=== PATIENT | female | born 1970 | race Caucasian/White ===

== ENCOUNTER → 2019-06-14 | Outpatient (CLI) | payer MEDICARE, MEDICAID ==
[~2019-06-14] MED LIST: ABILIFY15 MG PO; ACETAMINOPHEN500 M1 PO; BAYER CHEWABLE81 MG PO; BENZTROPINE MES1 MG PO; BUSPIRONE HCL15 MG PO; BUTRANS1 EAC1 TRANSDERM; BUTRANS1 EACH INTRADERM; COLACE 100 MG100 MG PO; DEBROX; DESMOPRESSIN A0.2 M2 PO; FLEET ENEMA133 ML; LAC-HYDRIN FIV226 GM TOP; LASIX 20 MG TAB20 MG PO; LEVOTHYROXIN0.088 MG PO; LIPITOR 10 MG10 M1 PO; LOVAZA1000 MG PO; MEDROLDOSEPACK PO; MELATONIN3 MG PO; MELOXICAM15 MG PO; METFORMIN HCL500 M2 PO; MILK OF MA400 MG/5 M PO; MIRALAX119 GM PO; OLANZAPINE ODT5 MG PO; OYSTER SHELL 51 EACH PO; PHAZYME180 MG PO; PRILOSEC20 MG PO; PROMS25 WY RECTAL; REGLAN 5 MG TAB5 MG PO; TEGRETOL200 MG PO; UNICOMPLEX M TA1 TA1 PO; VITAMIN E400 UNI4 PO; ZETIA10 MG PO; ZOCOR 20 MG TAB20 M1 PO
--- NOTE | 2019-07-05 08:57 | PAINCON ---
[facility] [address] [place] [address] PAIN MANAGEMENT CONSULTATION Name: LUISITO FLORENTINO Room: [facility]#: [id number] Admission: 06/14/19 Attend Phys: Nilsa Galvez MD Discharge: Date of : 66 Report #: [id number] THIS REPORT FOR: //name// cc: Ernesto Hendrix MD, Daljeet MD THIS REPORT FOR: //name// CC: Ernesto Galvez DATE OF SERVICE: 06/14/2019 CHIEF COMPLAINT: Low back pain. HISTORY OF PRESENT ILLNESS: The patient is a 48-year-old female with back pain. She has difficulty with communication due to mental handicap. She is present with her caregivers. She is accompanied by her mother. The patient seems to be having increased pain over the last few months. There is some difficulty in understanding exactly where her pain is. She sits in a wheelchair. Her caregivers have been with her for quite a number of years. They are not exactly sure where her pain is coming from. When she is assisted in getting out of the chair, she complains verbally. She pushes one's hand away. She has been brought to the Pain [facility] for evaluation and possible treatment. ALLERGIES: PENICILLIN, HALDOL. MEDICATIONS: Clorazepate from Tranxene T-Tab, Extra Strength Tylenol 500 mg up to 4 times daily, ammonium lactate lotion b.i.d., Abilify 15 mg, 30 mg daily, aspirin 81 mg, Cogentin 1 g b.i.d., buspirone 15 mg, 30 mg b.i.d., calcium, Tegretol 200 mg t.i.d., desmopressin 3 mg, Colace 100 mg b.i.d., Zetia 10 mg, Lasix 20 mg, Synthroid 0.088 mg, magnesium 400 mg, melatonin 3 mg, 6 mg at bedtime, meloxicam 15 mg, Reglan 5 mg. PAST MEDICAL HISTORY: Hypertension, thyroid disease, stomach problems, bipolar disorder, chronic constipation, developmental disability, elevated fasting glucose, gastroesophageal reflux, hyperlipidemia, hypothyroid, seizure disorder. PAST SURGICAL HISTORY: Unknown. SOCIAL HISTORY: Developmentally challenged. REVIEW OF SYSTEMS: Difficult to ascertain from the patient. PAIN CLINIC ASSESSMENT/PQRS: 1. History of osteoarthritis: [place] [address] PAIN MANAGEMENT CONSULTATION Name: LUISITO FLORENTINO Room: [facility]#: [id number] Admission: 06/14/19 Attend Phys: Nilsa Galvez MD Discharge: Date of : 66 Report #: [id number] 2. Rheumatoid arthritis: The patient is not being treated for rheumatoid arthritis. 3. Vital signs: The patient does not let us weigh her nor get vital signs. 4. Pain intensity: Difficult to ascertain. The patient becomes vocal with movement and complains. 5. Fall risk: Unknown. The patient has not fallen in the last 3 months. 6. Blood thinner: The patient is not on a blood thinning medication. 7. Hypertension: The patient is being treated for hypertension. 8. Opioids greater than 6 weeks: The patient is not on an opioid regimen. 9. Risk assessment tool: Difficult to ascertain secondary to the patient's inability to comply. 10. Functional assessment tool: Reviewed. 11. Recreational drug use: The patient does not use recreational drugs. 12. Tobacco: The patient does not smoke. 13. Alcohol: The patient does not drink alcoholic beverages. PHYSICAL EXAMINATION: The patient is a 48-year-old female, who appears developmentally delayed. She is friendly during the interaction with her mother and to assistance. She does not appear to have complaint of neck pain. Upper extremities are moved without complaint. The patient complains significantly when attempts are made to help her stand. She is in a wheelchair. Straightening of her leg is not very problematic. She does not complain much with that maneuver. IMAGING: MRI of the lumbar spine dated 04/11/2019 because of scoliosis and lumbar radiculopathy pain shows there is a levoconvex scoliosis of the lumbar spine with apex levocurvature at L3-L4. Heterogeneous marrow signal intensity could reflect patchy areas of fatty marrow. There is increased T2 signal hypointensity along the margin of the thecal sac, which may be subdural. There may be corresponding low T1 signal intensity. Consideration may be given for remote subdural hemorrhage. There are no compression fractures. The conus medullaris terminates at the level of L1. Distal spinal cord intensity is normal. Intervertebral disks have normal height and signal intensity. No annular fissures. L1-L2, the disk is normal in configuration. There is mild facet arthropathy. There is no neural foraminal stenosis. There is no spinal canal stenosis. L2-L3, the disk is normal in configuration. There is mild right facet arthropathy and ligamentum flavum infolding. There is no neural foraminal stenosis. There is no spinal canal stenosis. L3-L4, there is mild disk bulge. There is mild right facet arthropathy. There is mild right neural foraminal stenosis. There is no spinal canal stenosis. L4-L5, the disk bulge is mild. There is [id number] facet arthropathy. No [facility] [address] [place] [address] PAIN MANAGEMENT CONSULTATION Name: LUISITO FLORENTINO Room: [facility]#: [id number] Admission: 06/14/19 Attend Phys: Nilsa Galvez MD Discharge: Date of : 66 Report #: [id number] neural foraminal stenosis. L5-S1, there is mild disk bulge. There is severe left and moderate right facet arthropathy. No significant neural foraminal stenosis. Epidural lipomatosis narrows the thecal sac at the lumbosacral junction. IMPRESSION: 1. Complaint of back pain with movement. 2. Hypertension. 3. Thyroid disease. 4. Stomach problems. 5. Bipolar disorder. 6. Chronic constipation. 7. Developmental disability. 8. Elevated fasting glucose. 9. Gastroesophageal reflux. 10. Hyperlipidemia. 11. Hypothyroid. 12. Seizure disorder. 13. Degenerative disk disease, lumbar spine. 14. Scoliosis. RECOMMENDATIONS: We discussed treatment options with the patient, the patient's mother, and caregivers. It is difficult to ascertain exactly what and where the patient's pain is located. We will try Butrans 5 mg applied to the skin every 7 days. Hopefully, the patient will start noting some improvement in pain. She does not appear to be a candidate for an injection. It is virtually impossible to know exactly where her pain is located. We will start with the Butrans patch and increase this as she is able to tolerate it. We would like to thank you for letting us participate in her care. We hope she continues to improve. <ELECTRONICALLY SIGNED> By: Nilsa Galvez MD 07/05/19 [id number]. Shawn Galvez MD /nt
== END ==
LOC: M.PC 03:58
DX: M54.5 Low back pain (principal); I10 Essential (primary) hypertension; F31.9 Bipolar disorder, unspecified; K21.9 Gastro-esophageal reflux disease without esophagitis; E78.5 Hyperlipidemia, unspecified; E03.9 Hypothyroidism, unspecified; G43.909 Migraine, unspecified, not intractable, without status migrainosus; M51.36 Other intervertebral disc degeneration, lumbar region; M41.86 Other forms of scoliosis, lumbar region

== ENCOUNTER → 2019-06-28 | Outpatient (CLI) | payer MEDICARE, MEDICAID ==
--- NOTE | 2019-07-15 09:00 | PAINCON ---
[address] [address] PAIN MANAGEMENT CONSULTATION Name: LUISITO FLORENTINO Room: [facility]#: [id number] Admission: 06/28/19 Attend Phys: Nilsa Galvez MD Discharge: Date of : 66 Report #: [id number] THIS REPORT FOR: //name// cc: Ernesto Hendrix MD, Daljeet MD ~ THIS REPORT FOR: //name// CC: Ernesto Galvez DATE OF SERVICE: 06/28/2019 CHIEF COMPLAINT: Back pain. HISTORY: The patient is a 48-year-old female who has difficulty with communications. She has caregivers present. She has shown how early signs of pain and discomfort with movement. She sits in a wheelchair. Movement in a number of redirections can cause her to localize and appear to be uncomfortable. It has been difficult to ascertain where the patient's pain is located. She was started on Butrans patches. The hope is that this medication would be beneficial. She appears to still be having pain and discomfort in spite of it. ALLERGIES: PENICILLIN, HALDOL. CURRENT MEDICATIONS: Tylenol Extra Strength, clorazepate (Tranxene T-Tab), ammonium lactate solution b.i.d., Abilify 30 mg, aspirin 81 mg, Cogentin 1 g b.i.d., buspirone 15 mg, 30 mg b.i.d., calcium, Tegretol 200 mg t.i.d., desmopressin 3 mg, Colace 100 mg b.i.d., Zetia 10 mg, Lasix 20 mg, Synthroid 0.088 mg, magnesium 400 mg, melatonin 3 mg, 6 mg at bedtime, meloxicam 15 mg, Reglan 10 mg, Butrans 5 mg with patch applied weekly. PAIN CLINIC ASSESSMENT: 1. Difficult to ascertain the patient's whether or not she has osteoarthritis, is not being treated for rheumatoid arthritis. 2. Vital Signs: Blood pressure does not comply with letting vital signs be assessed. 3. Pain intensity, difficult to ascertain, the patient becomes vocal with movement and appears to be complaint of pain and discomfort. 4. Fall. The patient has not fallen in the last 3 months. 5. Blood thinner. The patient is not on a blood thinning medication. 6. Hypertension. The patient is being treated for hypertension. 7. Opioids greater than 6 weeks. The patient is not on an opioid regimen. 8. Risk assessment tool; difficult to assess secondary to the patient's inability to comply. 9. Functional [place] [address] PAIN MANAGEMENT CONSULTATION Name: LUISITO FLORENTINO Room: [facility] Ata#: [id number] Admission: 06/28/19 Attend Phys: Nilsa Galvez MD Discharge: Date of : 66 Report #: [id number] 10. Recreational drug use. The patient denies. The patient is not receiving recreational drugs. 11. Tobacco: The patient does not smoke. 12. Alcohol: The patient does not drink alcoholic beverages. HISTORY OF PRESENT ILLNESS: The patient is a well-developed, well-nourished 48-year-old female. Appears to be developmental delay. She is accompanied by an prosthetic assistant. [employer] School Tutor states that she has known her since 2003. Feels that the patient is still showing signs of pain and discomfort. The patient will not stand. The patient is in a wheelchair. Attempts to help the patient to stand causes a loud outpouring of localization and the patient pushing our hands away well as we try to help her stand. IMPRESSION: 1. Complaints of back pain with movement. 2. Hypertension. 3. Thyroid disease. 4. Stomach problems. 5. Bipolar disorder. 6. Chronic constipation. Developmentally delayed/disability. 7. Elevated fasting blood sugars. 8. Gastroesophageal reflux. 9. Hyperlipidemia. 10. Hypothyroidism. 11. Seizure disorder. 12. Degenerative disk disease of lumbar spine. 13. Scoliosis. RECOMMENDATION: We discussed treatment options with the caregiver. At this juncture, the patient will not let us examine her. She is not a candidate for an injection. The patient will not lie flat. At this juncture, we will continue to try to increase her pain medications. She is on Butrans 5 mg, which has been applied every 7 days. We will increase this to Butrans 10 mg applied q.7 days. Hopefully as we slightly increase this medication we will notice an improvement in her pain. Possibility of using gabapentin in the future might be an option. We would like to thank you for letting us participate in her care. We hope she continues to improve. <ELECTRONICALLY SIGNED> By: Nilsa Galvez MD 07/15/19899 01 51N. Shawn Galvez MD /nt
== END ==
LOC: M.PC 04:39
DX: M54.5 Low back pain (principal); M51.36 Other intervertebral disc degeneration, lumbar region; M41.80 Other forms of scoliosis, site unspecified; R56.9 Unspecified convulsions; E03.9 Hypothyroidism, unspecified; E78.5 Hyperlipidemia, unspecified; K21.9 Gastro-esophageal reflux disease without esophagitis; R73.01 Impaired fasting glucose; R19.5 Other fecal abnormalities; K31.89 Other diseases of stomach and duodenum; I10 Essential (primary) hypertension; F31.9 Bipolar disorder, unspecified; E07.9 Disorder of thyroid, unspecified; Z88.0 Allergy status to penicillin; Z88.8 Allergy status to other drugs, medicaments and biological substances